=== PATIENT | male | born 1960 | race African-American/Black ===

== ENCOUNTER → 2016-07-12 | Outpatient (CLI) | payer OTHER ==
[~2016-07-12] VITALS: Ht 177.8 cm; Wt 92.7 kg
[~2016-07-12] MED LIST: ADALAT CC 30 MG30 MG PO; ENALAPRIL MALEA10 MG PO; Glucophage PO; METFORMIN HCL500 MG PO; MOTRIN600 MG PO; NIFEDIPINE20 MG PO; ONGLYZA5 MG PO; PERCOCET 5/31 TABLET PO; Procardia XL,Adalat PO; RITALIN20 MG PO; TRULICITY1.5 MG/0.5 SC; VASOTEC5 M1 PO; ZOCOR20 MG PO; ZOFRAN4 MG PO; Zocor PO; [UNRECOGNIZED DRUG - OTHER]
[2016-07-12 08:59] LABS: POINT-OF-CARE METER ID UU13113694
== END | disposition home or self-care (01) ==
LOC: AMB 07:49
PROVIDERS: Internal Medicine
PROC: 0DJD8ZZ Inspection of Lower Intestinal Tract, Via Natural or Artificial Opening Endoscopic (ICD-10-PCS; principal; 2016-07-12)
DX: Z12.11 Encounter for screening for malignant neoplasm of colon (principal); I10 Essential (primary) hypertension; E11.9 Type 2 diabetes mellitus without complications; E29.1 Testicular hypofunction; E78.2 Mixed hyperlipidemia; J30.9 Allergic rhinitis, unspecified; Z83.3 Family history of diabetes mellitus; Z82.49 Family history of ischemic heart disease and other diseases of the circulatory system
CPT/HCPCS: 82948; J2250